=== PATIENT | female | born 1940 | race Caucasian/White ===

== ENCOUNTER 2025-01-24 12:34 | Outpatient (CLI) | payer MEDICARE | END 2025-01-24 12:35 | disposition home or self-care (01) | LOC: CSHMRI 12:34 | PROVIDERS: ATTEND Nurse Practitioner Family | DX: M48.062 Spinal stenosis, lumbar region with neurogenic claudication (principal); M47.816 Spondylosis without myelopathy or radiculopathy, lumbar region; M51.369 Other intervertebral disc degeneration, lumbar region without mention of lumbar back pain or lower extremity pain; M41.86 Other forms of scoliosis, lumbar region | CPT/HCPCS: 72148 ==